=== PATIENT | female | born 1955 | race Caucasian/White ===

== ENCOUNTER 2017-04-08 17:59 | Emergency (ER) | payer OTHER ==
[~2017-04-08 17:59] MED LIST: METH500T3 PO; NAPR550 PO
[2017-04-08 18:36] VITALS: BP 140/64; PULSE 78; RESP 16; TEMP 97.5; O2SAT 98
[2017-04-08] MEDS ORDERED: CALC1TAB87 PO (22:22)
[2017-04-08] MEDS ORDERED: AMOX500T PO (22:22)
[2017-04-08] MEDS ORDERED: IBUP1TAB7 PO (22:22)
[2017-04-08] MEDS ORDERED: DIPH1TAB4 PO (22:22)
[2017-04-08] MEDS ORDERED: DIPH1TAB4 (22:22)
== END 2017-04-08 18:44 | disposition left against medical advice (07) ==
LOC: PHED 17:59
DX: R58 Hemorrhage, not elsewhere classified (principal)
CPT/HCPCS: 99281

== ENCOUNTER 2017-04-08 21:32 | Emergency (ER) | payer OTHER ==
[~2017-04-08] VITALS: Ht 170.2 cm; Wt 79.8 kg
[2017-04-08 22:01] VITALS: BP 135/88; PULSE 77; RESP 18; TEMP 98.2; O2SAT 98
[2017-04-08] MEDS ORDERED: DIPH1TAB4 (22:22)
[2017-04-08] MEDS ORDERED: CALC1TAB87 PO (22:22)
[2017-04-08] MEDS ORDERED: DIPH1TAB4 PO (22:22)
[2017-04-08] MEDS ORDERED: IBUP1TAB7 PO (22:22)
[2017-04-08] MEDS ORDERED: AMOX500T PO (22:22)
--- NOTE | 2017-04-08 23:14 | PD ---
HPI Chief Complaint: Oral / Dental Pain or Problem Time Seen by Provider: 23:10 Travel History International Travel<30 days: No Contact w/Intl Traveler<30days: No Traveled to known affect area: No History of Present Illness HPI 61-year-old female underwent oral surgery 2:30 today and had graft transplant from the hard palate with sutures in place. Patient reports this evening started having bleeding after bending over. Patient contacted her oral surgeon who encouraged her to apply an teabag to the area to stop the bleeding and then to wear her retainer. Patient states she did apply tea bag and the bleeding seemed to stop when she remove the teabag there is again significant bleeding so came to the emergency department for evaluation. Currently there is no active bleeding. Patient has just recently removed the teabag. Patient denies other concerns or complaints. Patient takes no blood thinning agents. PFSH Past Medical History Narrative Medical GERD interval bowel syndrome; cholecystectomy ophthalmologic surgery, dental extraction; no tobacco use alcohol use and: Nursing notes reviewed Gastrointestinal Disorders: Yes (IBS, gastritis, diverticulosis ) Hiatal Hernia: Yes Tetanus Vaccination: > 5 Years Influenza Vaccination: No Menopausal: Yes Past Surgical History Cholecystectomy: Yes Eye Surgery: Yes (bilat eyes) Oral Surgery: Yes (wisdom teeth removed) Social History Alcohol Use: No Tobacco Use: No Substance Use: No Allergies-Medications (Allergen,Severity, Reaction): Coded Allergies: Sulfa (Sulfonamide Antibiotics) (Unverified Allergy, Intermediate, HIVES, 01/15/17) Reported Meds & Prescriptions Reported Meds & Active Scripts Active Reported Sleep Aid (Diphenhydramine HCl (Sleep)) 25 Mg Tab 25 Mg PO DAILY Sleep Aid (Diphenhydramine HCl (Sleep)) 25 Mg Tab Amoxicillin 500 Mg Tab 500 Mg PO TID Ibuprofen 800 Mg Tab 800 Mg PO TID Calcium 600 with Vitamin D (Calcium Carbonate-Cholecalciferol) 600-400 mg-Unit Tab 1 Tab PO DAILY Review of Systems Except as stated in HPI: all other systems reviewed are Neg Physical Exam Narrative GENERAL: Well-developed well-nourished female in no acute distress no respiratory distress SKIN: Warm and dry. HEAD: Normocephalic. EYES: No scleral icterus. No injection or drainage. ENT: Mucous membranes moist hard palate shows evidence of sutures in place with thrombus present and no active bleeding. NECK: Supple, trachea midline. No JVD or lymphadenopathy. Data Data Last Documented VS Vital Signs Date Time Temp Pulse Resp B/P (MAP) Pulse Ox O2 Delivery O2 Flow Rate FiO2 04/08/17 22:01 98.2 77 18 135/88 (104) 98 Orders Orders Ed Discharge Order (04/08/17 23:39) MDM Medical Decision Making Medical Screen Exam Complete: Yes Emergency Medical Condition: Yes Medical Record Reviewed: Yes Differential Diagnosis Postoperative bleeding, coagulopathy, wound dehiscence Narrative Course Patient has had a tea bag in place at the direction of her oral surgeon with removal of the tea bag there is no current active bleeding and good hemostasis is identified; patient will have 10 minutes of observation with tea bag out of place and then will insert her retainer and then will give a trial of sipping fluids to see if she remains with good hemostasis. At 11:36 PM no active bleeding. Patient tolerating oral hydration well and is stable for outpatient management. Diagnosis Primary Impression: Postprocedural hemorrhage due to complication of oral surgery Referrals: Primary Care Physician 1 day With your managing oral surgeon times one day Patient Instructions: General Instructions Additional Instructions: Hydrate with cool fluids Follow-up with your oral surgeon call office in a.m. Return to the emergency department for any concerns or change in condition Continue current medications as per the prescribed Jessy Watkins MD Apr 08, 2017 23:14
== END 2017-04-08 23:54 | disposition home or self-care (01) ==
LOC: PHEFT 21:32
DX: L76.22 Postprocedural hemorrhage of skin and subcutaneous tissue following other procedure (principal); Y83.8 Other surgical procedures as the cause of abnormal reaction of the patient, or of later complication, without mention of misadventure at the time of the procedure; Z79.2 Long term (current) use of antibiotics; Z79.899 Other long term (current) drug therapy
CPT/HCPCS: 99281